=== PATIENT | female | born 1970 | race Caucasian/White ===

== ENCOUNTER 2022-06-29 10:41 | Emergency (ER) | payer OTHER ==
[~2022-06-29] VITALS: Ht 162.6 cm; Wt 72.7 kg
[2022-06-29] MEDS ORDERED: LISI-894 PO (10:56)
[2022-06-29] MEDS ORDERED: METF-81 PO (10:56)
[2022-06-29] MEDS ORDERED: ATOR10TA69 PO (10:56)
[2022-06-29] MEDS ORDERED: INSLAN SQ (10:56)
[2022-06-29] MEDS ORDERED: PROPARACAINE HCL 0.5% 15 ML OPHTHALMIC SOLUTION OU ONE (11:15)
[2022-06-29] MEDS: FLUORESCEIN SODIUM 1 MG STRIP OU ONE ×2 (11:35→11:36)
[2022-06-29 12:39] LABS: COVID AG,FIA SOURCE NASAL SWAB
[2022-06-29 14:46] VITALS: BP 156/84
== END 2022-06-29 14:53 | disposition short-term general hospital (02) ==
LOC: EMS 10:44
DX: H53.132 Sudden visual loss, left eye (principal); Z20.822 Contact with and (suspected) exposure to COVID-19; E11.9 Type 2 diabetes mellitus without complications; E78.00 Pure hypercholesterolemia, unspecified; I10 Essential (primary) hypertension; Z86.69 Personal history of other diseases of the nervous system and sense organs; Z98.49 Cataract extraction status, unspecified eye
CPT/HCPCS: 82962; 99173; 99285